=== PATIENT | male | born 1960 | race Two or more races ===

== ENCOUNTER 2020-03-21 21:42 | Emergency (ER) | payer OTHER ==
[2020-03-21 21:50] VITALS: BMI 31.5
--- NOTE | 2020-03-21 22:14 | PDOC ---
History of Present Illness <Laxmi Dey - Last Filed: 03/22/20 02:23> - History of Present Illness Initial Comments: Pt is a 59yo M with PMH BPH who presents with abdominal pain. States that pain b suzette 4 days ago, nonradiating umbilical and LLQ abdominal pressure that is worse with bending down. States that he feels bloating when eating solid foods, so has been eating less solid foods but is tolerating PO intake. Reports 1 episode of emesis this morning that was non bloody, non bilious. States that he started taking a home remedy of baking soda, lemon and water for his L forearm paresthesia. Reports subjective fevers and chills (not measured), dizziness. Denies fatigue, chest pain, SOB, diarrhea, constipation. PCP: did not remember name PMH: BPH PShx: denies Meds: tamsulosin All: NKDA 03/22/20 06:27 <Deepa Ortega - Last Filed: 03/22/20 07:05> - General Chief Complaint: Pain Stated Complaint: ABDOMINAL PAIN Time Seen by Provider: 03/21/20 22:08 Past History <Laxmi Dey - Last Filed: 03/22/20 02:23> - Medical History COPD: No - Psycho-Social/Smoking History Smoking History: Never smoked - Substance Abuse Hx (Audit-C & DAST Scrn) How often the patient has a drink containing alcohol: Monthly or less Score: In Men: 4 or > Positive; In Women: 3 or > Positive: 1 Screen Result (Pos requires Nsg. Audit-10AR): Negative <Deepa Ortega - Last Filed: 03/22/20 07:05> - Medical History Allergies/Adverse Reactions: Allergies Allergy/AdvReac Type Severity Reaction Status Date / Time No Known Allergies Allergy Verified 03/21/20 23:28 Home Medications: Ambulatory Orders Sulfamethoxazole/Trimethoprim [Bactrim Ds -] 1 tab PO BID #14 tablet 03/22/20 metroNIDAZOLE [Flagyl -] 500 mg PO TID #21 tablet 03/22/20 Review of Systems - Review of Systems Comments:: CONSTITUTIONAL:reports fever, chills; denies diaphoresis, generalized weakness, loss of appetite HEENT:denies rhinorrhea, nasal congestion, sore throat, visual Changes CARDIOVASCULAR:denies chest pain, syncope, palpitations, lightheadedness RESPIRATORY:denies cough, shortness of breath, wheezing GASTROINTESTINAL: reports abdominal pain, vomiting; denies diarrhea, constipation, melena, hematochezia GENITOURINARY:denies dysuria, frequency, urgency, hesitancy, flank pain, genital pain MUSCULOSKELETAL:denies myalgia, arthralgia, back pain HEMATOLOGIC/IMMUNOLOGIC:denies easy bleeding, easy bruising ENDOCRINE: denies unexplained weight gain, unexplained weight loss NEUROLOGIC:reports L forearm and hand paresthesias, dizziness; denies headache, loss of consciousness, unsteady gait, bladder or bowel incontinence SKIN:denies rash, itching, pallor <Deepa Ortega - Last Filed: 03/22/20 07:05> *Physical Exam - Vital Signs Last Vital Signs Temp Pulse Resp BP Pulse Ox 98.8 F 71 20 133/79 97 03/21/20 21:45 03/21/20 21:45 03/21/20 21:45 03/21/20 21:45 03/21/20 21:45 <Laxmi Dey - Last Filed: 03/22/20 02:23> - Vital Signs Last Vital Signs Temp Pulse Resp BP Pulse Ox 98.8 F 71 20 133/79 97 03/21/20 21:45 03/21/20 21:45 03/21/20 21:45 03/21/20 21:45 03/21/20 21:45 - Physical Exam General: awake, alert, fully oriented, in mild distress, well developed, well nourished Head: normocephalic, atraumatic Eyes: PERRL, EOMI, anicteric sclera ENT: hearing grossly normal, oropharynx clear without exudates. Moist mucous membranes Lung: equal breath sounds b/l, CTA b/l, no crackles, wheezes; no distress, speaks full sentences Heart: RRR, normal S1, S2, no murmurs, rubs, gallops Abdomen: tender to palpation in umbilical and LLQ; normoactive bowel sounds, + guarding, - rebound, - masses Extremities: normal ROM, no edema, no erythema or tenderness, DP/PT pulses 2+ and symmetric, no clubbing, cyanosis Testicular exam: No penile discharge or lesions. No scrotal swelling or dis coloration. Testes descended bilaterally, smooth, no masses. No inguinal or femoral hernias. Neuro: CN2-12 grossly intact, moves all extremities, normal speech, sensation intact Skin: warm, dry, intact <JordanDeepa - Last Filed: 03/22/20 07:05> ED Treatment Course - LABORATORY CBC & Chemistry Diagram: 03/21/20 22:00 03/21/20 22:00 - ADDITIONAL ORDERS Additional order review: Laboratory Results 03/21/20 03/21/20 03/21/20 23:54 22:00 22:00 Sodium 140 Potassium 4.2 Chloride 107 Carbon Dioxide 28 Anion Gap 6 L BUN 12.1 Creatinine 1.1 Est GFR (CKD-EPI)AfAm 85.31 Est GFR (CKD-EPI)NonAf 73.61 POC Glucometer 106 Random Glucose 102 Calcium 9.0 Total Bilirubin 0.5 AST 22 ALT 24 Alkaline Phosphatase 67 Total Protein 7.6 Albumin 3.7 Lipase Cancelled 100 Urine Color Urine Appearance Urine pH Ur Specific [place] Urine Protein Urine Glucose (UA) Urine Ketones Urine Blood Urine Nitrite Urine Bilirubin Urine Urobilinogen Ur Leukocyte Esterase 03/21/20 22:00 Sodium Potassium Chloride Carbon Dioxide Anion Gap BUN Creatinine Est GFR (CKD-EPI)AfAm Est GFR (CKD-EPI)NonAf POC Glucometer Random Glucose Calcium Total Bilirubin AST ALT Alkaline Phosphatase Total Protein Albumin Lipase Urine Color Yellow Urine Appearance Clear Urine pH 5.5 Ur Specific [place] 1.033 Urine Protein Trace Urine Glucose (UA) Negative Urine Ketones Trace H Urine Blood Negative Urine Nitrite Negative Urine Bilirubin Negative Urine Urobilinogen 1.0 Ur Leukocyte Esterase Negative 03/21/20 03/21/20 23:54 22:00 RBC 4.71 MCV 91.5 MCHC 33.5 RDW 13.1 MPV 7.6 Neutrophils % 49.0 Lymphocytes % 39.6 Monocytes % 7.9 Eosinophils % 2.8 Basophils % 0.7 POC Glucometer 106 - Medications Given in the ED: ED Medications Discontinued Medications Generic Name Dose Route Start Last Admin Trade Name Freq PRN Reason Stop Dose Admin Acetaminophen 1,000 mg 03/21/20 22:54 03/21/20 23:28 Ofirmev Injection - IVPB 03/21/20 22:55 1,000 mg ONCE ONE Administration <Laxmi Dey - Last Filed: 03/22/20 02:23> - LABORATORY CBC & Chemistry Diagram: 03/21/20 22:00 03/21/20 22:00 <Deepa Ortega - Last Filed: 03/22/20 07:05> Medical Decision Making - Medical Decision Making Pt is 59yo M with PMH BPH who presents with LLQ and umbilical abdominal pain. Vital Signs Period Temp Pulse Resp BP Sys/Otto Pulse Ox Last 24 Hr 98.6 F-98.8 F 71-73 20-20 126-133/79-81 97-100 DDx: diverticulitis, bowel obstruction, mesenteric ischemia, constipation, umbilical hernia Plan: labs, CT a/p, EKG EKG: HR 61bpm, sinus rhythm with 1st degree av block, CO 210ms, QRS 84ms, QTc 410ms, no ST changes labs: no anemia, no leukocytosis, electrolytes WNL Laboratory Tests 03/21/20 03/21/20 03/21/20 22:00 22:00 22:00 WBC 6.7 RBC 4.71 Hgb 14.4 Hct 43.1 MCV 91.5 MCH 30.7 MCHC 33.5 RDW 13.1 Plt Count 197 MPV 7.6 Absolute Neuts (auto) 3.3 Neutrophils % 49.0 Lymphocytes % 39.6 Monocytes % 7.9 Eosinophils % 2.8 Basophils % 0.7 Nucleated RBC % 0 Sodium 140 Potassium 4.2 Chloride 107 Carbon Dioxide 28 Anion Gap 6 L BUN 12.1 Creatinine 1.1 Est GFR (CKD-EPI)AfAm 85.31 Est GFR (CKD-EPI)NonAf 73.61 POC Glucometer Random Glucose 102 Calcium 9.0 Total Bilirubin 0.5 AST 22 ALT 24 Alkaline Phosphatase 67 Total Protein 7.6 Albumin 3.7 Lipase 100 Urine Color Yellow Urine Appearance Clear Urine pH 5.5 Ur Specific [place] 1.033 Urine Protein Trace Urine Glucose (UA) Negative Urine Ketones Trace H Urine Blood Negative Urine Nitrite Negative Urine Bilirubin Negative Urine Urobilinogen 1.0 Ur Leukocyte Esterase Negative 03/21/20 03/21/20 22:00 23:54 WBC RBC Hgb Hct MCV MCH MCHC RDW Plt Count MPV Absolute Neuts (auto) Neutrophils % Lymphocytes % Monocytes % Eosinophils % Basophils % Nucleated RBC % Sodium Potassium Chloride Carbon Dioxide Anion Gap BUN Creatinine Est GFR (CKD-EPI)AfAm Est GFR (CKD-EPI)NonAf POC Glucometer 106 Random Glucose Calcium Total Bilirubin AST ALT Alkaline Phosphatase Total Protein Albumin Lipase Cancelled Urine Color Urine Appearance Urine pH Ur Specific [place] Urine Protein Urine Glucose (UA) Urine Ketones Urine Blood Urine Nitrite Urine Bilirubin Urine Urobilinogen Ur Leukocyte Esterase 03/22/20 02:00 CT A/P: acute sigmoid diverticulitis of the proximal sigmoid colon. There is left colon and sigmoid diverticulosis. There is focal wall thickening of the affected proximal sigmoid as well as mild to moderate surrounding inflammation. No abscess. No bowel obstruction. No free air or free fluid. Given 1 dose of Bactrim and Flagyl and prescription for 7 day course. Given referral for follow up with GI. Patient stable for discharge. pain improved. Informed of all lab and imaging results. Given follow up instructions and strict return precautions. Patient expressed understanding and agree to plan Disposition: Discharge to home <Deepa Ortega - Last Filed: 03/22/20 07:05> Discharge - Discharge Information Problems reviewed: Yes - Admission No <Laxmi Dey - Last Filed: 03/22/20 02:23> <Deepa Ortega - Last Filed: 03/22/20 07:05> - Discharge Information Clinical Impression/Diagnosis: Diverticulitis Condition: Stable Disposition: HOME - Additional Discharge Information Prescriptions: Sulfamethoxazole/Trimethoprim [Bactrim Ds -] 1 tab PO BID #14 tablet metroNIDAZOLE [Flagyl -] 500 mg PO TID #21 tablet - Follow up/Referral Referrals: Vikash Perdue MD [Staff Physician] - - Patient Discharge Instructions Patient Printed Discharge Instructions: DI for Diverticulitis
[2020-03-21] MEDS ORDERED: ACETAMINOPHEN 1000 MG/100 ML VIAL (NON FORMULARY) IVPB ONE (22:54)
--- NOTE | 2020-03-21 23:10 | PDOC ---
Documentation entered by Jordy Webber SCRIBE, acting as scribe for Laxmi Dey MD. Laxmi Dey MD: This documentation has been prepared by the scribe, Jordy Webber SCRIBE, under my direction and personally reviewed by me in its entirety. I confirm that the documentation accurately reflects all work, treatment, procedures, and medical decision making performed by me. Attending Attestation - Resident Resident Name: Deepa Ortega - ED Attending Attestation I have performed the following: I have examined & evaluated the patient, The case was reviewed & discussed with the resident, I agree w/resident's findings & plan, Exceptions are as noted - HPI HPI: 59 yo M presents with 4 day history of abdominal pain. Denies fever, chills, diarrhea. He had 1 episode of vomiting. No prior similar symptoms. In addition, he states he has L forearm tingling that he has had for months, following with his PMD. - Physicial Exam PE: 03/21/20 22:31 GENERAL: Awake, alert, and fully oriented, in no acute distress HEAD: No signs of trauma EYES: PERRLA, EOMI, sclera anicteric, conjunctiva clear ENT: Auricles normal inspection, hearing grossly normal, nares patent, oropharynx clear without exudates. Moist mucosa NECK: Normal ROM, supple, no lymphadenopathy, JVD, or masses LUNGS: Breath sounds equal, clear to auscultation bilaterally. No wheezes, and no crackles HEART: Regular rate and rhythm, normal S1 and S2, no murmurs, rubs or gallops ABDOMEN: Soft, nontender, normoactive bowel sounds. No guarding, no rebound. No masses EXTREMITIES: Normal range of motion, no edema. No clubbing or cyanosis. No cords, erythema, or tenderness NEUROLOGICAL: Cranial nerves II through XII grossly intact. Normal speech, normal gait SKIN: Warm, Dry, normal turgor, no rashes or lesions noted. - Medical Decision Making CT positive for diverticulitis. Patient tolerating PO, stable for DC with home PO abx. Discharge - Discharge Information Problems reviewed: Yes Clinical Impression/Diagnosis: Diverticulitis Condition: Stable Disposition: HOME - Additional Discharge Information Prescriptions: Sulfamethoxazole/Trimethoprim [Bactrim Ds -] 1 tab PO BID #14 tablet metroNIDAZOLE [Flagyl -] 500 mg PO TID #21 tablet - Follow up/Referral Referrals: Vikash Perdue MD [Staff Physician] - - Patient Discharge Instructions Patient Printed Discharge Instructions: DI for Diverticulitis - Post Discharge Activity
[2020-03-21 23:34] LABS: BASO % 0.7 % (0-2.0); EOS % 2.8 % (0-4.5); HEMATOCRIT 43.1 % (35.4-49); HEMOGLOBIN 14.4 GM/dL (11.7-16.9); LYMPH % 39.6 % (8-40); MCH 30.7 pg (25.7-33.7); MCHC 33.5 g/dl (32.0-35.9); MEAN CELL VOLUME 91.5 fl (80-96); MEAN PLT VOLUME 7.6 fl (7.5-11.1); MONO % 7.9 % (3.8-10.2); PLATELET COUNT 197 K/MM3 (134-434); RBC 4.71 M/mm3 (4.00-5.60); RDW 13.1 % (11.9-15.9); WHITE BLOOD COUNT 6.7 K/mm3 (4.0-10.0)
[2020-03-21 23:37] LABS: PH,URINE 5.5 (5.0-8.0); URINE APPEARANCE CLEAR; URINE BILIRUBIN NEGATIVE (NEGATIVE); URINE COLOR YELLOW; URINE GLUCOSE (UA) NEGATIVE (NEGATIVE); URINE KETONE TRACE (NEGATIVE); URINE LEUK ESTERASE NEGATIVE (NEGATIVE); URINE NITRITE NEGATIVE (NEGATIVE); URINE PROTEIN TRACE (NEGATIVE)
[2020-03-22 00:31] LABS: ALBUMIN 3.7 g/dl (3.4-5.0); BILIRUBIN,TOTAL 0.5 mg/dL (0.2-1); BLOOD UREA NITROGEN 12.1 mg/dL (7-18); CREATININE 1.1 mg/dL (0.55-1.3); POTASSIUM 4.2 mmol/L (3.5-5.1); TOT PROT 7.6 g/dl (6.4-8.2)
[2020-03-22] MEDS ORDERED: SULFAMETHOXAZOLE/TRIMETHOPRIM 800MG/160MG D.S. TABLET PO ONE (02:12)
[2020-03-22] MEDS ORDERED: metroNIDAZOLE 250 MG TABLET PO ONE (02:12)
[2020-03-22] MEDS ORDERED: SULFAMETHOXAZOLE/TRIMETHOPRIM 800MG/160MG D.S. TABLET ONE (02:24)
[2020-03-22] MEDS ORDERED: metroNIDAZOLE 250 MG TABLET ONE (02:24)
[2020-03-22 02:41] VITALS: BP 126/81; PULSE 73; TEMP 98.6
--- NOTE | 2020-03-22 09:29 | EKG ---
Test Reason : Blood Pressure : / mmHG Vent. Rate : 061 BPM Atrial Rate : 061 BPM P-R Int : 210 ms QRS Dur : 084 ms QT Int : 408 ms P-R-T Axes : 052 011 010 degrees QTc Int : 410 ms SINUS RHYTHM WITH 1ST DEGREE A-V BLOCK ABNORMAL ECG NO PREVIOUS ECGS AVAILABLE Confirmed by Luis Manuel Stahl ([id number]) on 03/22/2020 9:28:54 AM Referred By: Confirmed By:Luis Manuel Stahl
== END 2020-03-22 02:41 | disposition home or self-care (01) ==
LOC: JER 21:42
PROC: 3E0333Z Introduction of Anti-inflammatory into Peripheral Vein, Percutaneous Approach (ICD-10-PCS; principal; 2020-03-21)
DX: K57.92 Diverticulitis of intestine, part unspecified, without perforation or abscess without bleeding (principal)
CPT/HCPCS: 36415; 74177-TC; 80053; 81003; 82962; 83690; 85025; 87086; 93005; 93010; 99285-25; J0131

== ENCOUNTER 2020-10-28 15:32 | Emergency (ER) | payer OTHER ==
[2020-10-28 16:00] VITALS: TEMP 98.9; BMI 30.7
[2020-10-28] MEDS ORDERED: LIDOCAINE 5% TOPICAL PATCH TP ONE (17:15)
[2020-10-28] MEDS ORDERED: ACETAMINOPHEN 325 MG TABLET (FP) PO ONE (17:15)
[2020-10-28] MEDS ORDERED: ACETAMINOPHEN 325 MG TABLET (FP) ONE (17:21)
[2020-10-28] MEDS ORDERED: LIDOCAINE 5% TOPICAL PATCH ONE (17:21)
[2020-10-28 19:49] VITALS: BP 133/87; PULSE 88
[2020-10-28] MEDS ORDERED: LIDOCAINE PATCH REMOVAL MC SCH (22:00)
== END 2020-10-28 19:50 | disposition home or self-care (01) ==
LOC: JERFT 15:32
DX: S13.4XXA Sprain of ligaments of cervical spine, initial encounter (principal); M54.5 Low back pain
CPT/HCPCS: 70450-TC; 72100-TC-FY; 72125-TC; 99285-25

== ENCOUNTER 2023-01-13 15:46 | Emergency (ER) | payer OTHER ==
[2023-01-13] MEDS ORDERED: BENZOCAINE 20% 57 GM BOTTLE TP ONE (15:50)
[2023-01-13] MEDS ORDERED: TETRACAINE/BENZOCAINE/BUTAMBEN 20 GM SPR TP ONE (15:56)
[2023-01-13] MEDS ORDERED: RAPID SEQUENCE INTUBATION KIT NR ONE ×2 (15:57)
[2023-01-13 16:10] LABS: ARTERIAL BLD GAS O2 SATURATION 79.4 % (95-98); ARTERIAL BLOOD GAS BASE EXCESS -0.4 mmol/L (-2-2); ARTERIAL BLOOD GAS PO2 45.3 mmHg (80-100); ARTERIAL BLOOD GAS pH 7.362 (7.350-7.450)
[2023-01-13] MEDS ORDERED: DEXAMETHASONE SOD PHOSPHATE 10 MG/1 ML VIAL IVPUSH ONE (16:13)
[2023-01-13 16:34] VITALS: BMI 32.1
[2023-01-13 17:10] LABS: BASO % 0.6 % (0-2.0); HEMATOCRIT 43.2 % (35.4-49); HEMOGLOBIN 14.6 GM/dL (11.7-16.9); LYMPH % 33.4 % (8-40); MCH 29.9 pg (25.7-33.7); MCHC 33.8 g/dl (32.0-35.9); MEAN CELL VOLUME 88.4 fl (80-96); MEAN PLT VOLUME 8.4 fl (7.5-11.1); PLATELET COUNT 191 10^3/uL (134-434); RBC 4.89 M/mm3 (4.00-5.60); RDW 13.7 % (11.9-15.9); WHITE BLOOD COUNT 6.3 K/mm3 (4.0-10.0)
[2023-01-13 17:16] LABS: INR 1.03 (0.83-1.09); PROTHROMBIN TIME (PATIENT) 11.9 SEC (9.7-13.0)
[2023-01-13 17:26] LABS: CALCIUM 9.5 mg/dL (8.5-10.1)
[2023-01-13 17:27] LABS: ALBUMIN 3.9 g/dl (3.4-5.0); BLOOD UREA NITROGEN 12.1 mg/dL (7-18)
[2023-01-13 17:30] LABS: CREATININE 1.2 mg/dL (0.55-1.3)
[2023-01-13 17:32] LABS: BILIRUBIN,TOTAL 0.4 mg/dL (0.2-1); TOT PROT 7.5 g/dl (6.4-8.2)
[2023-01-13 19:40] VITALS: TEMP 98.3
[2023-01-13 23:37] VITALS: BP 134/78; PULSE 60; RESP 17
[2023-01-13] MEDS ORDERED: LIDOCAINE VISCOUS 2% ORAL/TOP 15 ML UNIT-DOSE CUP ONE (23:40)
[2023-01-13] MEDS ORDERED: LIDOCAINE VISCOUS 2% ORAL/TOP 15 ML UNIT-DOSE CUP MM ONE (23:55)
== END 2023-01-14 00:04 | disposition home or self-care (01) ==
LOC: JER 15:46
PROC: 3E033GC Introduction of Other Therapeutic Substance into Peripheral Vein, Percutaneous Approach (ICD-10-PCS; principal; 2023-01-13)
DX: T58.91XA Toxic effect of carbon monoxide from unspecified source, accidental (unintentional), initial encounter (principal); R51.9 Headache, unspecified; R07.0 Pain in throat
CPT/HCPCS: 36415; 36600; 71045-TC-FY; 80053; 82375; 82803; 85025; 85610; 86850; 86900; 86901; 93005; 93010; 99285-25; J1100